=== PATIENT | female | born 1975 | race Caucasian/White ===

== ENCOUNTER 2017-04-13 13:38 | Emergency (ER) | payer SELFPAY ==
[2017-04-13] MEDS ORDERED: KETOROLAC 30 MG/1 ML ONE (14:39)
[2017-04-13] MEDS ORDERED: ALBUTEROL/IPRATROPIUM 2.5MG/0.5MG, 3 ML ONE (15:20)
== END 2017-04-13 13:54 | disposition left against medical advice (07) ==
LOC: ED 13:47
DX: R05 Cough (principal); R50.9 Fever, unspecified; Z53.21 Procedure and treatment not carried out due to patient leaving prior to being seen by health care provider
CPT/HCPCS: 94640; 99281